=== PATIENT | male | born 2000 | race Caucasian/White ===

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

== ENCOUNTER → 2022-01-06 11:40 | Outpatient (BNVA) | payer BC, SELFPAY | PROVIDERS: PCP Family Medicine; Visit Provider Family Medicine | DX: R53.83 Other fatigue (principal); F41.9 Anxiety disorder, unspecified; R53.81 Other malaise; Z13.220 Encounter for screening for lipoid disorders; Z51.81 Encounter for therapeutic drug level monitoring; I10 Essential (primary) hypertension | CPT/HCPCS: 80053; 80061; 83516; 84403; 85025 ==

== ENCOUNTER 2022-09-29 20:00 | Outpatient (CLI) | payer BC, SELFPAY | END 2022-09-29 20:01 | disposition home or self-care (01) | LOC: SLEEP 09-30 05:11 | PROVIDERS: PCP Family Medicine; Visit Provider Specialist | DX: G47.419 Narcolepsy without cataplexy (principal); G47.33 Obstructive sleep apnea (adult) (pediatric); G47.10 Hypersomnia, unspecified; G47.00 Insomnia, unspecified; R53.81 Other malaise; R53.83 Other fatigue | CPT/HCPCS: 95811 ==

== ENCOUNTER 2023-01-28 11:35 | Outpatient (CLI) | payer OTHER, BC, SELFPAY ==
--- NOTE | 2023-01-28 11:50 | XR_ITS ---
WS: [id number] Exam: XR lumbar spine 2-3V* [id number] Date/Time of Exam: 01/28/2023 11:58 AM Reason For Exam: LOW BACK SPRAIN Compared to abdominal and pelvic CT scan performed 12/29/2015. A left-sided unilateral pars defect of L5 is noted but no spondylolisthesis. Disc spaces are preserve d. Posterior elements are otherwise intact. Exaggerated lumbar lordosis. Mild dextroscoliosis. IMPRESSION: 1. No fracture or malalignment. 2. Left-sided unilateral pars interarticularis defect of L5. No spondylolisthesis noted. 3. Exaggerated lumbar lordosis. Mild dextroscoliosis.
== END 2023-01-28 11:36 | disposition home or self-care (01) ==
LOC: RAD 11:44
PROVIDERS: PCP Family Medicine; Visit Provider Student in an Organized Health Care Education/Training Program
DX: S33.5XXA Sprain of ligaments of lumbar spine, initial encounter (principal); X58.XXXA Exposure to other specified factors, initial encounter; M40.56 Lordosis, unspecified, lumbar region; M41.86 Other forms of scoliosis, lumbar region
CPT/HCPCS: 72100

== ENCOUNTER 2023-10-25 10:53 | Emergency (ER) | payer BC, OTHER, SELFPAY ==
--- NOTE | 2023-10-25 10:57 | XRR_ITS ---
PROCEDURE INFORMATION: Exam: XR Chest Exam date and time: 10/25/2023 11:17 AM Age: 23 years old Clinical indication: Cough and dyspnea; Additional info: Dyspnea/cough TECHNIQUE: Imaging protocol: Radiologic exam of the chest. Views: 1 view. COMPARISON: No relevant prior studies available. FINDINGS: Lungs: Unremarkable. No consolidation. Pleural spaces: Unremarkable. No pleural effusion. No pneumothorax. Heart/Mediastinum: Unremarkable. No cardiomegaly. Bones/joints: Unremarkable. XR/XR chest 1V portable [id number] IMPRESSION: No acute findings.
--- NOTE | 2023-10-25 10:57 | ECG_ITS ---
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 Measurements Intervals [place] Rate: 110 P: 0 [place]: 0 QRS: 55 QRSD: 94 T: 69 QT: 308 QTc: 418 Interpretive Statements ATRIAL FIBRILLATION WITH RAPID VENTRICULAR RESPONSE ABNORMAL RHYTHM ECG No previous ECG available for comparison Electronically Signed On 10-25-2023 21:32:17 CDT by Luz Perez M.D. [id number]
[2023-10-25 11:01] VITALS: BP 170/114; PULSE 119; RESP 17; TEMP 36.7; O2SAT 100; BMI 24.4
[2023-10-25 11:22] LABS: Basophils # 0.1 10^3/uL (0.0-0.1); Eosinophils # 0.3 10^3/uL (0.0-0.8); Eosinophils % 3.9 %; Hematocrit 48.5 % (37-53); Lymphocytes # 2.8 10^3/uL (0.8-4.8); Lymphocytes % 39.2 %; Mean Corpuscular HGB Conc 32.8 g/dL (30-55); Mean Corpuscular Hemoglobin 29.3 pg (27-33); Mean Corpuscular Volume 89.5 fl (82-101); Mean Platelet Volume 8.8 fL (7.4-10.4); Monocytes # 0.6 10^3/uL (0.2-0.9); Monocytes % 8.3 %; Neutrophils # 3.33 10^3/uL (1.8-7.7); Neutrophils % 46.9 %; Nucleated Red Blood Cells % 0 %; Platelet Count 294 10^3/cmm (157-399); Red Blood Count 5.42 10^6/uL (3.85-5.65); Red Cell Distribution Width 12.1 % (12.1-15.1)
--- NOTE | 2023-10-25 11:34 | ECG_ITS ---
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 Measurements Intervals [place] Rate: 86 P: 86 NM: 143 QRS: 62 QRSD: 96 T: 83 QT: 337 QTc: 404 Interpretive Statements SINUS RHYTHM WITH OCCASIONAL SUPRAVENTRICULAR PREMATURE COMPLEXES Compared to ECG 10/25/2023 10:56:24 Atrial fibrillation no longer present Electronically Signed On 10-25-2023 21:37:45 CDT by Luz Perez M.D. [email or web address] method[facility] hospitalIntegral Ad Science/store/OM/[id number]
--- NOTE | 2023-10-25 11:35 | ED_ITS ---
HPI - Chest Pain 2 General: Chief Complaint: Chest Pain Stated Complaint: CP Time Seen by Provider: 10/25/23 10:57 History of Present Illness: 23-year-old male presents emergency room with complaint of chest pain has had for last week Pre-Sate irregular heart rate. Concerned he may have atrial fibrillation he did have a recent Holter monitor which she had not heard resulted and does not look like reviewing his chart he done a lot with us. He reports he has had several syncopal episodes over the last couple of weeks and months which is what the workup is been about. He has had some dizziness today. Interestingly whenever he repositions himself or sits up or does anything he becomes relatively tachycardic and at rest his heart rate returned to normal he is not having any chest pain at this time. Holter monitor from August of this year was reviewed as found in the chart Associated symptoms: Deny abdominal pain, dyspnea or fever(s) Related Data Home Medications Medication Instructions Recorded Confirmed omeprazole 40 mg capsule,delayed 40 mg PO DAILY 10/25/23 10/25/23 release Previous Rx's Medication Instructions Recorded Full face mask and CPAP supplies #1 ea 04/22/22 alprazolam 0.25 mg tablet 0.25 mg PO DAILY PRN anxiety #15 12/09/22 tabs clindamycin 1.2 %-benzoyl 5 % See Rx Instructions topical DAILY 06/29/23 topical gel with emollient cream #130 grams no.94 citalopram 10 mg tablet 10 mg PO DAILY #90 tabs 10/10/23 dextroamphetamine sulfate 20 mg 20 mg PO BID 30 days #60 tabs 10/13/23 tablet metoprolol succinate 25 mg 12.5 mg (1/2 x 25 mg) PO DAILY #15 10/25/23 tablet,extended release 24 hr tabs (Toprol XL) Allergies Allergy/AdvReac Type Severity Reaction Status Date / Time Sulfa (Sulfonamide Allergy swelling Verified 10/06/22 10:48 Antibiotics) Review of Systems 2 Const: Denies: fever(s) or chills Card: Denies: chest pain Resp: Denies: dyspnea GI: Denies: abdominal pain : Denies: dysuria, urinary frequency or urinary urgency Musc: Denies: neck pain or back pain Skin/Breast: Denies: rash PFSH ED 2 PFSH: Medical History ADD (attention deficit disorder) Anxiety Surgical History No pertinent past surgical history Family History Father Crohn's disease Mother Thyroid disease Hypertension Social History Smoking and tobacco/nicotine status: never used tobacco/nicotine Second hand smoke exposure: No Alcohol intake: never Substance/Drug Use: never Current occupation: [employer] Physical Exam 2 Const: COMMON NORMALS: no acute distress GENERAL APPEARANCE: cooperative and comfortable ORIENTATION/CONSCIOUSNESS: Yes awake, Yes oriented to person, Yes oriented to place and Yes oriented to time HENMT: COMMON NORMALS: normocephalic, atraumatic and hearing grossly normal bilaterally HEAD & SCALP: normocephalic and atraumatic Resp: COMMON NORMALS: normal respiratory effort, No retractions, No use of accessory muscles and clear to auscultation bilaterally AUSCULTATION: clear to auscultation bilaterally Cardio: COMMON NORMALS: regular rate, regular rhythm and No murmurs present (Cardio) RATE: regular rate RHYTHM: regular rhythm GI: COMMON NORMALS: Soft to palpation and No hepatosplenomegaly present A USCULTATION: Yes normoactive bowel sounds PALPATION: Yes Soft to palpation, No Tenderness to palpation present (GI), No Guarding due to palpation present (GI) and Yes No hepatosplenomegaly present Extremity: COMMON NORMALS: normal to inspection, capillary refill normal, no clubbing, cyanosis or edema, no calf tenderness and no pedal edema Neuro: SENSORIUM/ORIENTATION: Yes oriented to person, Yes oriented to place and Yes oriented to time Skin: COMMON NORMALS: no rashes or lesions noted GENERAL SKIN EXAM: no rashes or lesions noted Course 2 Vital Signs: Vital signs: Vital Signs Temperature 98.0 F 10/25/23 11:01 Pulse Rate 66 10/25/23 15:20 Respiratory Rate 15 10/25/23 14:47 Blood Pressure 128/83 10/25/23 15:20 Pulse Oximetry 100 10/25/23 15:20 Oxygen Delivery Me thod Room Air 10/25/23 14:47 MDM - Chest Pain Medical Decision Making Patient reporting chest pain cardiac enzymes and EKG did not show anything curies had some sinus tachycardia but no SVT. My EKG is read of the computer as being atrial fibrillation and appears more to be a sinus arrhythmia. When I examined him he did not have A-fib. Holter monitor reviewed on the chart from August shows symptomatic SVT he has not been started on anything but it does not look like he has had any follow-up since then. He is on dextroamphetamine which could worsen his symptoms. Will start him on Toprol XL 12.5 mg once daily and have him follow-up with his primary care doctor. They can reevaluate his symptoms and need for efficacy of the medication as well as reviewing his medication list to see if they wish to stop his dextro amphetamine which was started for ADHD. In addition to this we will set up for an outpatient echocardiogram. Cardiac enzymes and D-dimer negative. Labs reviewed as found on the chart. Medical Records I reviewed the patient's medical records. Lab Data I reviewed the patient's lab results. 10/25/23 11:10 10/25/23 11:10 Radiology Impressions Chest X-Ray 10/25/23 10:57 IMPRESSION: No acute findings. Laboratory Results WBC 7.10 10^3/uL (3.29-11.43) 10/25/23 11:10 RBC 5.42 10^6/uL (3.85-5.65) 10/25/23 11:10 Hgb 15.90 g/dL (11.27-16.99) 10/25/23 11:10 Hct 48.5 % (37-53) 10/25/23 11:10 MCV 89.5 fl (82-101) 10/25/23 11:10 MCH 29.3 pg (27-33) 10/25/23 11:10 MCHC 32.8 g/dL (30-55) 10/25/23 11:10 RDW 12.1 % (12.1-15.1) 10/25/23 11:10 Plt Count 294 10^3/cmm (157-399) 10/25/23 11:10 MPV 8.8 fL (7.4-10.4) 10/25/23 11:10 Neut % (Auto) 46.9 % 10/25/23 11:10 Lymph % (Auto) 39.2 % 10/25/23 11:10 [place] % (Auto) 8.3 % 10/25/23 11:10 Eos % (Auto) 3.9 % 10/25/23 11:10 Baso % (Auto) 1.0 % 10/25/23 11:10 Neut # (Auto) 3.33 10^3/uL (1.8-7.7) 10/25/23 11:10 Lymph # (Auto) 2.8 10^3/uL (0.8-4.8) 10/25/23 11:10 [place] # (Auto) 0.6 10^3/uL (0.2-0.9) 10/25/23 11:10 Eos # (Auto) 0.3 10^3/uL (0.0-0.8) 10/25/23 11:10 Baso # (Auto) 0.1 10^3/uL (0.0-0.1) 10/25/23 11:10 Nucleated RBC % (auto) 0 % 10/25/23 11:10 Nucleated RBCs # 0.0 /100WBC 10/25/23 11:10 D-Dimer 0.34 ug/mLFEU (0-0.59) 10/25/23 11:10 Sodium 140 mmol/L (136-145) 10/25/23 11:10 Potassium 4.2 mmol/L (3.5-5.1) 10/25/23 11:10 Chloride 104 mmol/L (98-107) 10/25/23 11:10 Carbon Dioxide 26 mmol/L (22-29) 10/25/23 11:10 Anion Gap 14.2 (5-19) 10/25/23 11:10 BUN 10 mg/dL (6-20) 10/25/23 11:10 Creatinine 0.7 mg/dL (0.7-1.2) 10/25/23 11:10 GFR Calculation 142.4 mL/min (90-130) H 10/25/23 11:10 Glucose 116 mg/dL (65-115) H 10/25/23 11:10 Calculated Osmolality 290 mOsm/kg (285-295) 10/25/23 11:10 Calcium 9.8 mg/dL (8.5-10.5) 10/25/23 11:10 Total Bilirubin 0.3 mg/dL (0.15-1.2) 10/25/23 11:10 AST 18 U/L (0-40) 10/25/23 11:10 ALT 19 U/L (0-41) 10/25/23 11:10 Alkaline Phosphatase 53 U/L (40-130) 10/25/23 11:10 Troponin T Baseline < 6 ng/L (0-15) 10/25/23 11:10 Troponin T 120 Minute 6.98 ng/L (0-15) 10/25/23 13:10 Delta Troponin T 0.58706 ABS# (0-10) 10/25/23 13:10 Total Protein 7.4 g/dL (6.6-8.7) 10/25/23 11:10 Albumin 4.6 g/dL (3.5-5.2) 10/25/23 11:10 Globulin 2.8 g/dL (1.3-4.6) 10/25/23 11:10 TSH 2.15 uIU/mL (0.27-4.20) 10/25/23 11:10 All radiology interpretation(s) finalized by discharge Discharge Plan Discharge Patient Disposition: Home Clinical Impression: SVT (supraventricular tachycardia), Hypertension, Near syncope Condition: Stable Prescriptions: New Toprol XL 25 mg tablet extended release 24 hr 12.5 mg PO DAILY Qty: 15 0RF No Action alprazolam 0.25 mg tablet 0.25 mg PO DAILY PRN (Reason: anxiety) Qty: 15 0RF mnatmjbuqfs-xhrdfon-ufdb cmb94 1.2-5 % combo pack,cream and gel See Rx Instructions topical DAILY Qty: 130 1RF Rx Instructions: apply every other night if too irritating initially topical daily; apply every other night if too irritating initially (DME) Full face mask and CPAP supplies See Rx Instructions .Route .MEDSUPPLY Qty: 1 3RF Rx Instructions: As directed citalopram 10 mg tablet 10 mg PO DAILY Qty: 90 3RF dextroamphetamine sulfate 20 mg tablet 20 mg PO BID 30 Days Qty: 60 0RF Rx Instructions: administer doses at least 4-6 hours apart omeprazole 40 mg capsule,delayed release(DR/EC) 40 mg PO DAILY Discharge Orders: Discharge ED (Routine); Ordered 10/25/23 Ordered By: Mario Valerio Referrals: Tim Torres MD [Primary Care Provider] - Patient Instructions: Opioid Safety, Pain Management Activity Restrictions/Additional Instructions: [facility]. It is very important that you follow up as instructed or that you return to the Emergency Department should you have concerns or if your condition changes or worsens in any way. You were seen today with complaints of syncopal episode been going on for some time. We reviewed your old Holter monitor in your records it showed you had some intermittent SVT. Your blood pressure is mildly elevated and you are prescribed as well. He had sinus tachycardia several times while in the emergency room. Recommend that he start on 12 and half milligrams (half tablet) of Toprol-XL once a day he should take this at night before you go to bed. You should see your doctor within the next week to reevaluate blood pressure and symptoms. Additionally we will set you up for an echocardiogram as an outpatient. Coding Level of Care Code ED Residential Care Facility Manager for Manuel Mayers
[2023-10-25 11:42] LABS: Alanine Aminotransferase 19 U/L (0-41); Albumin Level 4.6 g/dL (3.5-5.2); Alkaline Phosphatase 53 U/L (40-130); Anion Gap 14.2 (5-19); Aspartate Amino Transferase 18 U/L (0-40); Blood Urea Nitrogen 10 mg/dL (6-20); Calcium 9.8 mg/dL (8.5-10.5); Carbon Dioxide 26 mmol/L (22-29); Chloride 104 mmol/L (98-107); Creatinine Clr Calc Pharmacy 181.6441; Globulin 2.8 g/dL (1.3-4.6); Glomerular Filtration Rate 142.4 mL/min (90-130); Glucose 116 mg/dL (65-115); Osmolality Calculated 290 mOsm/kg (285-295); Potassium 4.2 mmol/L (3.5-5.1); Sodium 140 mmol/L (136-145); Total Bilirubin 0.3 mg/dL (0.15-1.2); Total Protein 7.4 g/dL (6.6-8.7)
[2023-10-25 11:58] VITALS: BP 140/90; PULSE 88; O2SAT 99
[2023-10-25 12:22] LABS: Thyroid Stimulating Hormone 2.15 uIU/mL (0.27-4.20)
[2023-10-25 13:24] LABS: D Dimer 0.34 ug/mLFEU (0-0.59)
[2023-10-25 13:26] LABS: Troponin(5th) Baseline < 6 ng/L (0-15)
[2023-10-25 14:18] LABS: Troponin 5 2HR 6.98 ng/L (0-15); Troponin 5 2HR Delta 0.98001 ABS# (0-10)
--- NOTE | 2023-10-25 14:38 | ECG_ITS ---
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 Measurements Intervals [place] Rate: 71 P: 81 [place]: 142 QRS: 66 QRSD: 102 T: 75 QT: 365 QTc: 399 Interpretive Statements SINUS RHYTHM WITH SINUS ARRHYTHMIA Compared to ECG 10/25/2023 11:42:18 No significant changes Electronically Signed On 10-25-2023 21:51:33 CDT by Luz Perez M.D. [email or web address].[facility] hospitalServato Corp/store/[id number]
[2023-10-25 14:47] VITALS: BP 128/83; PULSE 66; RESP 15; O2SAT 100
[2023-10-25 15:20] VITALS: BP 128/83; PULSE 66; O2SAT 100
== END 2023-10-25 15:23 | disposition home or self-care (01) ==
PROVIDERS: Absent Provider Nurse Practitioner Family; Emergency Provider Family Medicine; PCP Family Medicine
DX: I47.10 Supraventricular tachycardia, unspecified (principal); I10 Essential (primary) hypertension; R55 Syncope and collapse
CPT/HCPCS: 36415; 71045; 80053; 84443; 84484; 85025; 85378; 93005; 99285

== ENCOUNTER 2023-10-26 15:44 | Emergency (ER) | payer BC, OTHER, SELFPAY ==
[2023-10-26] VITALS (20 sets, daily range): BP systolic 129–163; BP diastolic 78–95; PULSE 76–122; RESP 10–23; TEMP 37.1; O2SAT 96–100; BMI 25.8
--- NOTE | 2023-10-26 15:50 | ECG_ITS ---
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 memorial hospitalMCK Communicationsashtabula general hospital.[employer]cher[employer]/store/[id number]
--- NOTE | 2023-10-26 16:02 | W.ED.CHESTPA ---
HPI - Chest Pain General: Chief Complaint: Chest Pain Stated Complaint: CP Time Seen by Provider: 10/26/23 16:02 History of Present Illness: 23-year-old male presents to the emergency room with complaints of chest discomfort. He was seen yesterday with similar complaints troponins were normal he had a recent a Holter monitor that showed some intermittent SVT which started him on Toprol. He is also complaining some back pain states he had compression fractures back there is an old scan that shows a pars defect at L5 but no compression fractures. He states he had a scan in [place] that showed a compression fracture in his thoracic spine. He is not having any chest pain at this time. Associated symptoms: Deny abdominal pain, dyspnea or fever(s) Related Data Home Medications Medication Instructions Recorded Confirmed omeprazole 40 mg capsule,delayed 40 mg PO DAILY 10/25/23 10/25/23 release Previous Rx's Medication Instructions Recorded Full face mask and CPAP supplies #1 ea 04/22/22 alprazolam 0.25 mg tablet 0.25 mg PO DAILY PRN anxiety #15 12/09/22 tabs clindamycin 1.2 %-benzoyl 5 % See Rx Instructions topical DAILY 06/29/23 topical gel with emollient cream #130 grams no.94 citalopram 10 mg tablet 10 mg PO DAILY #90 tabs 10/10/23 dextroamphetamine sulfate 20 mg 20 mg PO BID 30 days #60 tabs 10/13/23 tablet metoprolol succinate 25 mg 25 mg PO DAILY #15 tabs 10/26/23 tablet,extended release 24 hr (Toprol XL) Allergies Allergy/AdvReac Type Severity Reaction Status Date / Time Sulfa (Sulfonamide Allergy swelling Verified 10/06/22 10:48 Antibiotics) Review of Systems Const: Denies: fever(s) or chills Card: Reports: chest pain Resp: Denies: dyspnea GI: Denies: abdominal pain : Denies: dysuria, urinary frequency or urinary urgency Musc: Reports: back pain; Denies: neck pain Skin/Breast: Denies: rash PFSH ED PFSH: Medical History ADD (attention deficit disorder) Anxiety Surgical History No pertinent past surgical history Family History Father Crohn's disease Mother Thyroid disease Hypertension Social History Smoking and tobacco/nicotine status: never used tobacco/nicotine Second hand smoke exposure: No Alcohol intake: never Substance/Drug Use: never Current occupation: [employer] Physical Exam Const: GENERAL APPEARANCE: cooperative ORIENTATION/CONSCIOUSNESS: Yes awake, Yes oriented to person, Yes oriented to place and Yes oriented to time HENMT: COMMON NORMALS: normocephalic, atraumatic and hearing grossly normal bilaterally HEAD & SCALP: normocephalic and atraumatic Resp: COMMON NORMALS: normal respiratory effort, No retractions, No use of accessory muscles and clear to auscultation bilaterally AUSCULTATION: clear to auscultation bilaterally Cardio: COMMON NORMALS: regular rate, regular rhythm and No murmurs present (Cardio) RATE: regular rate RHYTHM: regular rhythm GI: COMMON NORMALS: Soft to palpation and No hepatosplenomegaly present AUSCULTATION: Yes normoactive bowel sounds PALPATION: Yes Soft to palpation, No Tenderness to palpation present (GI), No Guarding due to palpation present (GI) and Yes No hepatosplenomegaly present Extremity: COMMON NORMALS: normal to inspection, capillary refill normal, no clubbing, cyanosis or edema, no calf tenderness and no pedal edema Neuro: SENSORIUM/ORIENTATION: Yes oriented to person, Yes oriented to place and Yes oriented to time Skin: COMMON NORMALS: no rashes or lesions noted GENERAL SKIN EXAM: no rashes or lesions noted Course Vital Signs: Vital signs: Vital Signs Temperature 98.7 F 10/26/23 15:52 Pulse Rate 76 10/26/23 16:50 Respiratory Rate 12 10/26/23 16:50 Blood Pressure 163/95 10/26/23 16:30 Pulse Oximetry 98 10/26/23 16:50 Oxygen Delivery Me thod Room Air 10/26/23 15:52 MDM - Chest Pain Medical Decision Making Discussed with Dr. Perez. We agreed to increase his metoprolol XL to 25 once daily. No other changes at this time EKG does not show any acute changes. His troponins yesterday were normal. He should follow-up with Dr. Perez's office within the next week Medical Records I reviewed the patient's medical records. Lab Data I reviewed the patient's lab results. Radiology Impressions Lumbar Spine CT 10/26/23 16:03 IMPRESSION: 1. No acute findings. 2. 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 Thoracic Spine CT 10/26/23 16:18 IMPRESSION: Unremarkable CT Spine. All radiology interpretation(s) finalized by discharge Discharge Plan Discharge Patient Disposition: Home Clinical Impression: SVT (supraventricular tachycardia), Hypertension, Back pain Condition: Stable Prescriptions: Changed Toprol XL 25 mg tablet extended release 24 hr 25 mg PO DAILY Qty: 15 0RF No Action alprazolam 0.25 mg tablet 0.25 mg PO DAILY PRN (Reason: anxiety) Qty: 15 0RF [id number] 1.2-5 % combo pack,cream and gel See Rx Instructions topical DAILY Qty: 130 1RF Rx Instructions: apply every other night if too irritating initially topical daily; apply every other night if too irritating initially (DME) Full face mask and CPAP supplies See Rx Instructions .Route .MEDSUPPLY Qty: 1 3RF Rx Instructions: As directed citalopram 10 mg tablet 10 mg PO DAILY Qty: 90 3RF dextroamphetamine sulfate 20 mg tablet 20 mg PO BID 30 Days Qty: 60 0RF Rx Instructions: administer doses at least 4-6 hours apart omeprazole 40 mg capsule,delayed release(DR/EC) 40 mg PO DAILY Discharge Orders: Discharge ED (Routine); Ordered 10/26/23 Ordered By: Mario Valerio Referrals: Tim Torres MD [Primary Care Provider] - Discharge Diet: Usual diet Discharge Activity: Resume usual activity Patient Instructions: Opioid Safety, Pain Management Activity Restrictions/Additional Instructions: Thank you for choosing [facility] for your healthcare needs today. It is very important that you follow up as instructed or that you return to the Emergency Department should you have concerns or if your condition changes or worsens in any way. You were seen emergency room for complaint of rapid heart rate. He also mention back issues. CT of your lumbar and thoracic spine shows a L5 pars defect that was present previously no other fractures are noted on the CT scans. Discussed her case with Dr. Perez and you had seen previously. We recommend that you increase your Toprol-XL to 25 mg once daily and follow-up with Dr. Perez within the week. Coding Level of Care Code ED Qc Lab Technician for Manuel Mayers
--- NOTE | 2023-10-26 16:03 | CTR_ITS ---
PROCEDURE INFORMATION: Exam: CT Lumbar Spine Without Contrast Exam date and time: 10/26/2023 4:27 PM Age: 23 years old Clinical indication: Low back pain; Patient HX: HX FX TECHNIQUE: Imaging protocol: Computed tomography of the lumbar spine without contrast. Radiation optimization: All CT scans at this facility use at least one of these dose optimization techniques: automated exposure control; mA and/or kV adjustment per patient size (includes targeted exams where dose is matched to clinical indication); or iterative reconstruction. COMPARISON: CR XR lumbar spine 2-3V* [id number] 01/28/2023 12:00 PM RADIATION DOSE METRICS: Total DLP (mGy-cm): 666 FINDINGS: Bones/joints: No acute fracture. Normal alignment. 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 No significant disc bulge or herniation. No severe spinal canal stenosis. No significant neural foraminal narrowing. Soft tissues: Unremarkable. CT/CT lumbar spine wo con* [id number] IMPRESSION: 1. No acute findings. 2. 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
--- NOTE | 2023-10-26 16:18 | CTR_ITS ---
PROCEDURE INFORMATION: Exam: CT Thoracic Spine Without Contrast Exam date and time: 10/26/2023 4:24 PM Age: 23 years old Clinical indication: Pain in thoracic spine; Additional info: Back pain TECHNIQUE: Imaging protocol: Computed tomography of the thoracic spine without contrast. Radiation optimization: All CT scans at this facility use at least one of these dose optimization techniques: automated exposure control; mA and/or kV adjustment per patient size (includes targeted exams where dose is matched to clinical indication); or iterative reconstruction. COMPARISON: CR XR chest 1V portable [id number] 10/25/2023 11:17 AM RADIATION DOSE METRICS: Total DLP (mGy-cm): 698 FINDINGS: Bones/joints: No acute fracture. Normal alignment. No significant disc bulge or herniation. No severe spinal canal stenosis. No significant neural foraminal narrowing. Soft tissues: Unremarkable. CT/CT thoracic spin wo con* [id number] IMPRESSION: Unremarkable CT Spine.
== END 2023-10-26 17:37 | disposition home or self-care (01) ==
PROVIDERS: Emergency Provider Family Medicine; PCP Family Medicine
DX: I47.10 Supraventricular tachycardia, unspecified (principal); I10 Essential (primary) hypertension; M54.9 Dorsalgia, unspecified
CPT/HCPCS: 72128; 72131; 93005; 99284

== ENCOUNTER → 2023-12-01 10:51 | Outpatient (BNVA) | payer BC, OTHER, SELFPAY | PROVIDERS: PCP Family Medicine; Visit Provider Internal Medicine Cardiovascular Disease | DX: I10 Essential (primary) hypertension (principal); I49.8 Other specified cardiac arrhythmias; R07.9 Chest pain, unspecified | CPT/HCPCS: 93005 ==

== ENCOUNTER 2023-12-12 11:48 | Outpatient (CLI) | payer OTHER, BC, SELFPAY ==
[2023-12-12 11:55] VITALS: BP 148/76; PULSE 91; BMI 27.6
--- NOTE | 2023-12-12 11:56 | ECG_ITS ---
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
== END 2023-12-12 11:49 | disposition home or self-care (01) ==
PROVIDERS: PCP Family Medicine; Visit Provider Internal Medicine Cardiovascular Disease
DX: I45.9 Conduction disorder, unspecified (principal); R07.9 Chest pain, unspecified; R06.02 Shortness of breath
CPT/HCPCS: 93017

== ENCOUNTER 2023-12-29 11:56 | Outpatient (CLI) | payer BC, OTHER, SELFPAY ==
--- NOTE | 2023-12-29 12:00 | USCV_ITS ---
Carlos Barron Age: 23 Gender: M : 2000 Exam Date: 12/29/2023 12:17 Ordering Phys: Luz Perez MD ([email or web address]) Technologist: CT Exam Location: [facility] [place] Indication: cp BP: 116 / 72 HR: 57 Rhythm: Sinus Technical Quality: Adequate MEASUREMENTS (Male / Female) Normal Values 2D ECHO LVOT Diameter 2.0 cm LV Ejection Fraction MOD 4C 54.8 % LV Ejection Fraction MOD 2C 65.6 % LV Ejection Fraction 2C AL 68.4 % LA Diameter 3.4 cm RA Systolic Volume 4C AL 54.3 ml RA Systolic Volume 4C MOD 52.6 ml LA Sys Volume AL 56.0 cm cubed LA Sys Volume Index AL 26.1 cm cubed/m squared Aorta at Sinotubular Diameter 1.9 cm IVC Diameter 1.9 cm M-MODE LA Ao Ratio MM 1.5 AV Cusp Separation MM 2.1 cm DOPPLER AV Peak Velocity 88.0 cm/s LVOT Peak Velocity 77.0 cm/s AV Area Cont Eq vti 2.8 cm squared AV Area Cont Eq pk 2.8 cm squared MV Peak Velocity 98.0 cm/s MV Area PHT 3.3 cm squared Mitral E to A Ratio 2.1 TR Peak Velocity 159.0 cm/s TR Peak Gradient 10.1 mmHg TV Peak E Velocity 95.0 cm/s Right Atrial Pressure 3.0 mmHg Pulmonary Artery Systolic Pressu 13.1 mmHg PV Peak Velocity 82.0 cm/s FINDINGS Left Ventricle Normal left ventricular size and systolic function, EF 60%. No regional wall motion abnormalities. Right Ventricle The right ventricle is normal in size and function. Right Atrium The right atrium is normal in size. Left Atrium The left atrium is normal in size. Mitral Valve No gross abnormalities noted Aortic Valve No gross abnormalities noted Tricuspid Valve Trace tricuspid valve regurgitation. Pulmonic Valve No gross abnormalities noted Pericardium Normal pericardium without effusion. Aorta Normal ascending aorta dimension. IVC The inferior vena cava appears normal. CONCLUSIONS Normal left ventricular size and systolic function, EF 60%. No regional wall motion abnormalities. Trace tricuspid valve regurgitation. Estimated pulmonary artery peak systolic pressure within normal limits Normal cardiac chamber sizes. No intracardiac shunts by color-flow Doppler examination. There is no pericardial effusion. No similar previous studies are available for comparison Dr Luz Perez MD FAC (Electronically Signed) Final Date: 05 January 2024 09:12 S
== END 2023-12-29 11:57 | disposition home or self-care (01) ==
LOC: RAD 11:56
PROVIDERS: PCP Family Medicine; Visit Provider Internal Medicine Cardiovascular Disease
DX: R06.09 Other forms of dyspnea (principal)
CPT/HCPCS: 93306